=== PATIENT | male | born 1985 | race Caucasian/White ===

== ENCOUNTER 2024-06-18 17:11 | Emergency (ER) | payer OTHER ==
[2024-06-18 17:30] VITALS: RESP 18; TEMP 98.3
[2024-06-18 18:10] LABS: ALT 110 U/L (4-49); AST 51 U/L (17-59); African American GFR (CKD) >90 (>60 ml/min/1.73 sqM); Albumin 3.7 g/dL (3.5-5.0); Alkaline Phosphatase 98 U/L (38-126); Anion Gap 8 mmol/L; Blood Urea Nitrogen 23 mg/dL (9-20); Calcium 8.7 mg/dL (8.4-10.2); Carbon Dioxide 22 mmol/L (22-30); Chloride 105 mmol/L (98-107); Glucose 133 mg/dL (74-99); Magnesium 1.9 mg/dL (1.6-2.3); Non-African American GFR(CKD) >90 (>60 ml/min/1.73 sqM); Potassium 4.5 mmol/L (3.5-5.1); Sodium 135 mmol/L (137-145); Total Bilirubin 0.7 mg/dL (0.2-1.3); Total Protein 6.7 g/dL (6.3-8.2)
[2024-06-18 18:12] LABS: Basophils % (A) 0 %; Eosinophils # (A) 0.2 k/uL (0-0.7); Eosinophils % (A) 2 %; HCT 42.3 % (39.0-53.0); HGB 13.8 gm/dL (13.0-17.5); Hypochromasia Moderate; Lymphocytes % (A) 21 %; MCH 30.7 pg (25.0-35.0); MCHC 32.5 g/dL (31.0-37.0); MCV 94.5 fL (80.0-100.0); Mean Platelet Volume 10.6; Monocytes # (A) 0.5 k/uL (0-1.0); Monocytes % (A) 5 %; Neutrophils # (A) 6.7 k/uL (1.3-7.7); Neutrophils % (A) 70 %; Platelet Count 209 k/uL (150-450); RBC 4.48 m/uL (4.30-5.90); RDW 13.8 % (11.5-15.5); WBC 9.5 k/uL (3.8-10.6)
[2024-06-18 18:18] LABS: NT-Pro-B-Type Natriuretic Pept 15300 pg/mL
[2024-06-18 18:23] LABS: Partial Thromboplastin Time 24.6 sec (22.0-30.0); Prothrombin Time 11.4 sec (10.0-12.5)
--- NOTE | 2024-06-18 18:26 | ED ---
SOB HPI - General Chief Complaint: Shortness of Breath Stated Complaint: SOB Time Seen by Provider: 06/18/24 18:15 Source: patient, RN notes reviewed Mode of arrival: ambulatory Limitations: no limitations - History of Present Illness Initial Comments: This is a 39-year-old male who presents to the emergency department for shortness of breath and leg swelling. States that over the last couple of weeks he has had an increase in swelling in his bilateral lower extremities. Since this started he has also noticed an increase in shortness of breath. Denies any chest pain. States that his lungs feel like they are full of fluid. Denies any history of congestive heart failure or other medical problems. MD Complaint: shortness of breath - Related Data Previous Rx's Medication Instructions Recorded Furosemide [Lasix] 20 mg PO BID #6 tab 06/18/24 Allergies Allergy/AdvReac Type Severity Reaction Status Date / Time No Known Allergies Allergy Verified 06/18/24 17:29 Review of Systems ROS Statement: Those systems with pertinent positive or pertinent negative responses have been documented in the HPI. ROS Other: All systems not noted in ROS Statement are negative. Past Medical History Past Medical History: No Reported History History of Any Multi-Drug Resistant Organisms: None Reported Past Surgical History: No Surgical Hx Reported Past Psychological History: Anxiety, Depression Smoking Status: Current every day smoker Past Alcohol Use History: Occasional Past Drug Use History: Cocaine, Marijuana General Exam Limitations: no limitations General appearance: alert Head exam: Present: atraumatic, normocephalic, normal inspection Respiratory exam: Present: decreased breath sounds, prolonged expiratory Cardiovascular Exam: Present: normal rhythm, tachycardia Extremities exam: Present: other (Pitting edema to the bilateral lower extremities) Neurological exam: Present: alert, oriented X3, CN II-XII intact Psychiatric exam: Present: normal affect, normal mood Skin exam: Present: warm, dry Course Vital Signs 06/18/24 06/18/24 06/18/24 17:25 19:20 20:29 Temperature 98.3 F Pulse Rate 120 H 122 H 120 H Respiratory 18 18 18 Rate Blood Pressure 180/83 129/108 137/74 O2 Sat by Pulse 100 96 98 Oximetry Medical Decision Making - Medical Decision Making This is a 39-year-old male who presents to the emergency department for shortness of breath and leg swelling. Was pt. sent in by a medical professional or institution? @ -No Did you speak to anyone other than the patient for history? @ -No Did you review nursing and triage notes? @ -Yes, and I agree, it is accurate with regards to the patient's symptoms. Were old charts reviewed? @ -No Differential Diagnosis? @ -Differential Dyspnea: Coronary syndrome, arrhythmia, tamponade, asthma, COPD, pulmonary embolism, pneu monia, pneumothorax, pulmonary effusion, anaphylaxis, diabetic ketoacidosis, flailed chest, pulmonary contusion, diaphragmatic rupture, anemia, neuromuscular, this is not meant to be an all-inclusive list. EKG interpreted by me (3pts min.)? @ -EKG interpreted by me demonstrating the following: Sinus tachycardia. Ventricular rate 120 bpm, RI interval 155 ms, QRS duration 94 ms, QTc 410 ms. X-rays interpreted by me (1pt min.)? @ -Chest x-ray obtained, my interpretation identifies no localized consolidations or infiltrates. CT interpreted by me (1pt min.)? @ -CTA of the chest obtained. My interpretation identifies no evidence of a pulmonary embolus. U/S interpreted by me (1pt. min.)? @ -Not obtained What testing was considered but not performed? (CT, X-rays, U/S, labs)? Why? @ -Cepheid 4 Plex testing, however patient refused. What meds were considered but not given? Why? @ -None Did you discuss the management of the patient with other professionals? @ -No Did you reconcile home meds? @ -No Was smoking cessation discussed for >3mins.? @ -No Was critical care preformed (if so, how long)? @ -No Were there social determinants of health that impacted care today? How? (Homelessness, low income, unemployed, alcoholism, drug addiction, transportation, low edu. Level, literacy, decrease access to med. care, residential, r ehab)? @ -No Was there de-escalation of care discussed even if they declined? (Discuss DNR or withdrawal of care, Hospice)? @ -No What co-morbidities impacted this encounter? (DM, HTN, Smoking, COPD, CAD, Cancer, CVA, Hep., AIDS, mental health diagnosis, sleep apnea, morbid obesity)? @ -None Was patient admitted / discharged? @ -Lab work demonstrates an elevated D-dimer of 1.19 and an elevated BNP of 15,300. I advised Cepheid 4 Plex testing, however patient refused. Chest x-ray reveals no acute process. CTA of the chest reveals no evidence of a pulmonary embolus. He does have cardiomegaly as well as a dilated pulmonary artery suggestive of pulmonary artery hypertension. Patient's presentation potentially related to a new onset CHF versus pulmonary hypertension. I did advise admission for diuresis and an echocardiogram with cardiology evaluation. However, patient refused despite my strongest recommendations as he had no one to take care of his dogs. Patient subsequently signed out AGAINST MEDICAL ADVICE. 40 mg of IV Lasix administered in the emergency department and a prescription for 20 mg twice daily x 3 days was provided. Information for cardiology follow-up provided as well. Advised he contact their facility for a follow-up appointment or become established with a local primary care provider for ongoing medical care. Case discussed with ED attending Dr. Parra. Undiagnosed new problem with uncertain prognosis? @ -None Drug Therapy requiring intensive monitoring for toxicity (Heparin, Nitro, Insulin, Cardizem)? @ -None Were any procedures done? @ -None Diagnosis/symptom? @ -Elevated BNP, dyspnea, lower extremity edema, tachycardia Acute, or Chronic, or Acute on Chronic? @ -Acute Uncomplicated (without systemic symptoms) or Complicated (systemic symptoms)? @ -Complicated Side effects of treatment? @ -None Exacerbation, Progression, or Severe Exacerbation] @ -Not applicable Poses a threat to life or bodily function? @ -Yes, can lead to further cardiac and respiratory compromise - Lab Data Result diagrams: 06/18/24 17:43 06/18/24 17:43 Lab Results 06/18/24 06/18/24 06/18/24 Range/Units 17:43 17:43 17:43 WBC 9.5 (3.8-10.6) k/uL RBC 4.48 (4.30-5.90) m/uL Hgb 13.8 (13.0-17.5) gm/dL Hct 42.3 (39.0-53.0) % MCV 94.5 (80.0-100.0) fL MCH 30.7 (25.0-35.0) pg MCHC 32.5 (31.0-37.0) g/dL RDW 13.8 (11.5-15.5) % Plt Count 209 (150-450) k/uL MPV 10.6 Neutrophils % 70 % Lymphocytes % 21 % Monocytes % 5 % Eosinophils % 2 % Basophils % 0 % Neutrophils # 6.7 (1.3-7.7) k/uL Lymphocytes # 2.0 (1.0-4.8) k/uL Monocytes # 0.5 (0-1.0) k/uL Eosinophils # 0.2 (0-0.7) k/uL Basophils # 0.0 (0-0.2) k/uL Hypochromasia Moderate PT 11.4 (10.0-12.5) sec INR 1.0 (<1.2) APTT 24.6 (22.0-30.0) sec D-Dimer 1.19 H (<0.60) mg/L FEU Sodium 135 L (137-145) mmol/L Potassium 4.5 (3.5-5.1) mmol/L Chloride 105 (98-107) mmol/L Carbon Dioxide 22 (22-30) mmol/L Anion Gap 8 mmol/L BUN 23 H (9-20) mg/dL Creatinine 1.00 (0.66-1.25) mg/dL Est GFR (CKD-EPI)AfAm >90 (>60 ml/min/1.73 sqM) Est GFR (CKD-EPI)NonAf >90 (>60 ml/min/1.73 sqM) Glucose 133 H (74-99) mg/dL Calcium 8.7 (8.4-10.2) mg/dL Magnesium 1.9 (1.6-2.3) mg/dL Total Bilirubin 0.7 (0.2-1.3) mg/dL AST 51 (17-59) U/L ALT 110 H (4-49) U/L Alkaline Phosphatase 98 (38-126) U/L Troponin I (0.000-0.034) ng/mL NT-Pro-B Natriuret Pep 51774 pg/mL Total Protein 6.7 (6.3-8.2) g/dL Albumin 3.7 (3.5-5.0) g/dL 06/18/24 Range/Units 17:43 WBC (3.8-10.6) k/uL RBC (4.30-5.90) m/uL Hgb (13.0-17.5) gm/dL Hct (39.0-53.0) % MCV (80.0-100.0) fL MCH (25.0-35.0) pg MCHC (31.0-37.0) g/dL RDW (11.5-15.5) % Plt Count (150-450) k/uL MPV Neutrophils % % Lymphocytes % % Monocytes % % Eosinophils % % Basophils % % Neutrophils # (1.3-7.7) k/uL Lymphocytes # (1.0-4.8) k/uL Monocytes # (0-1.0) k/uL Eosinophils # (0-0.7) k/uL Basophils # (0-0.2) k/uL Hypochromasia PT (10.0-12.5) sec INR (<1.2) APTT (22.0-30.0) sec D-Dimer (<0.60) mg/L FEU Sodium (137-145) mmol/L Potassium (3.5-5.1) mmol/L Chloride (98-107) mmol/L Carbon Dioxide (22-30) mmol/L Anion Gap mmol/L BUN (9-20) mg/dL Creatinine (0.66-1.25) mg/dL Est GFR (CKD-EPI)AfAm (>60 ml/min/1.73 sqM) Est GFR (CKD-EPI)NonAf (>60 ml/min/1.73 sqM) Glucose (74-99) mg/dL Calcium (8.4-10.2) mg/dL Magnesium (1.6-2.3) mg/dL Total Bilirubin (0.2-1.3) mg/dL AST (17-59) U/L ALT (4-49) U/L Alkaline Phosphatase (38-126) U/L Troponin I 0.017 (0.000-0.034) ng/mL NT-Pro-B Natriuret Pep pg/mL Total Protein (6.3-8.2) g/dL Albumin (3.5-5.0) g/dL - Radiology Data Radiology results: report reviewed, image reviewed Disposition Clinical Impression: Leg swelling, Dyspnea, Tachycardia, Elevated brain natriuretic peptide (BNP) level Disposition: LEFT AGAINST MEDICAL ADVICE Instructions (If sedation given, give patient instructions): Heart Failure (ER), Heart Failure (DC), Pulmonary Arterial Hypertension (ED), Leg Edema (ED) Additional Instructions: Return to the emergency department with any new, worsening, or concerning symptoms. Take the Lasix twice daily for the next 3 days. Elevate your legs and use compression stockings if possible. Review the list of local primary care providers to become established for ongoing medical management. Also reach out to the cardiology office listed below for a follow up appointment. Let them know that you were seen in the emergency department and they were concerned about congestive heart failure. Prescriptions: Furosemide [Lasix] 20 mg PO BID #6 tab Is patient prescribed a controlled substance at d/c from ED?: No Referrals: None,Stated [Primary Care Provider] - 1-2 days Martin Bates MD [STAFF PHYSICIAN] - 1-2 days Forms: Area PCPs Time of Disposition: 20:09
--- NOTE | 2024-06-18 18:44 | XR ---
EXAMINATION TYPE: XR chest 2V DATE OF EXAM: 06/18/2024 6:39 PM COMPARISON: None TECHNIQUE: XR chest 2V Frontal and lateral views of the chest. CLINICAL INDICATION:Male, 39 years old with history of difficulty breathing; FINDINGS: Lungs/Pleura: There is no evidence of pleural effusion, focal consolidation, or pneumothorax. Pulmonary vascularity: Unremarkable. Heart/mediastinum: Cardiomediastinal silhouette is prominent in size. Musculoskeletal: No acute osseous pathology. Mild multilevel degenerative disc disease. IMPRESSION: No acute cardiopulmonary disease/process. [facility], , 06/18/2024 6:42 PM
--- NOTE | 2024-06-18 19:01 | CT ---
EXAMINATION TYPE: CT chest angio for PE CT DLP: 388.7 mGycm, Automated exposure control for dose reduction was used. DATE OF EXAM: 06/18/2024 6:49 PM COMPARISON: Chest radiograph from same day. CLINICAL INDICATION:Male, 39 years old with history of BREA, elevated d-dimer, tachy; BREA, elevated d- dimer, tachy. TECHNIQUE/CONTRAST: CTA scan of the thorax is performed with IV Contrast, patient injected with 100 mL of Isovue 370, pul monary embolism protocol. MIP images are created and reviewed. FINDINGS: Pulmonary Artery: There is no evidence for a filling defect within the pulmonary vasculature to sugge st acute pulmonary embolism. The pulmonary artery is dilated measuring up to 3.6 cm. Lungs/Pleura: No evidence of focal consolidation, pleural effusion or pneumothorax. Linear atelectasi s within the left lower lobe. No suspicious pulmonary nodule or mass. Airway: Large airways are patent. Heart: Cardiomegaly is demonstrated.No pericardial effusion. No significant coronary artery calcifica tions. Vasculature: No evidence of aortic aneurysm. Mediastinum: No evidence of adenopathy. Musculoskeletal: No acute osseous abnormalities. Mild degenerative disc disease of the midthoracic sp ine. Soft Tissues: Unremarkable. Lower neck: No significant findings. Upper Abdomen: No significant findings. IMPRESSION: 1. No evidence of pulmonary embolism. 2. Dilated pulmonary artery which can be seen with pulmonary arterial hypertension. 3. Cardiomegaly. [facility], , 06/18/2024 6:59 PM
[2024-06-18] MEDS: FUROSEMIDE 10 MG/ML 4 ML VIAL IV STA (19:19)
[2024-06-18 20:32] VITALS: BP 137/74; PULSE 120
== END 2024-06-18 20:29 | disposition left against medical advice (07) ==
LOC: EC 17:11
DX: R06.00 Dyspnea, unspecified (principal); R00.0 Tachycardia, unspecified; R22.43 Localized swelling, mass and lump, lower limb, bilateral; I50.9 Heart failure, unspecified; F17.200 Nicotine dependence, unspecified, uncomplicated; Z53.29 Procedure and treatment not carried out because of patient's decision for other reasons
CPT/HCPCS: 96374 ×2; 99285 ×2; 36415; 93005; 85379; 83880; 80053; 83735; 84484; 85025; 85610; 85730; 71046; 71275; J1940; Q9967

== ENCOUNTER → 2024-07-26 | Outpatient (CLI) | payer SELFPAY ==
[2024-07-26 18:51] LABS: BUN/Creat Ratio 22.82 Ratio (12.00-20.00); Blood Urea Nitrogen 25.1 mg/dL (9.0-27.0); Carbon Dioxide 25.5 mmol/L (21.6-31.8); Chloride 99 mmol/L (96-109); Chol/HDL Ratio 3.12 Ratio; Glucose 106 mg/dL (70-110); LDL Cholesterol,Calculated 75.7 mg/dL (0.0-131.0); Potassium 3.7 mmol/L (3.5-5.5); Sodium 139 mmol/L (135-145); VLDL Calculation 16.14 mg/dL (5.00-40.00)
[2024-07-26 18:52] LABS: ALT 40 U/L (10-49); AST 39 U/L (14-35); Calcium 8.9 mg/dL (8.7-10.3)
[2024-07-26 21:57] LABS: NT-Pro-B-Type Natriuretic Pept 14253 pg/mL (0-125)
== END | disposition home or self-care (01) ==
LOC: LABWHC1 15:20
PROVIDERS: ATTEND Internal Medicine Gastroenterology
DX: E78.2 Mixed hyperlipidemia (principal)
CPT/HCPCS: 36415; 80048; 80061; 83880; 84450; 84460

== ENCOUNTER 2024-08-04 10:13 | Day surgery (SDC) | payer BC ==
[~2024-08-04 10:13] MED LIST: ALPRAZolam 0.25 MG TAB PO PRN; ALPRAZolam 0.5 MG TAB PO PRN; ASPIRIN 325 MG TAB PO ONE; HEPARIN SODIUM,PORCINE (1 ML) 2,500 UNIT in SODIUM CHLORIDE 0.9% 250 ML IRRIGATION PRN; HEPARIN SODIUM,PORCINE 10,000 UNIT in SODIUM CHLORIDE 0.9% 1,000 ML IRRIGATION PRN; NITROGLYCERIN SL TABS 0.4 MG TAB SUBLINGUAL PRN; SODIUM CHLORIDE 0.9% 1,000 ML in EMPTY BAG 1 BAG IV SCH
[2024-08-04 10:29] VITALS: RESP 18; TEMP 96.9
[2024-08-04] MEDS: IV FLUID CONTINUATION 1,000 ML IV ONE (10:29)
[2024-08-04] MEDS: ASPIRIN 325 MG TAB PO ONE (11:27)
[2024-08-04] MEDS: HEPARIN SODIUM,PORCINE (1 ML) 2,500 UNIT in SODIUM CHLORIDE 0.9% 250 ML IRRIGATION ONE (12:01)
[2024-08-04] MEDS: HEPARIN SODIUM (1,000 UNIT/ML) 1,000 UNIT in SODIUM CHLORIDE 0.9% 1,000 ML IRRIGATION ONE (12:01)
[2024-08-04] MEDS: MIDAZOLAM 2 MG/2 ML VIAL IVP ONE (12:08)
[2024-08-04] MEDS: fentaNYL (PF) 50 MCG/ML 2 ML AMP IVP ONE (12:08)
[2024-08-04] MEDS: LIDOCAINE 1% INJ 10MG/ML (20 ML MDV) SQ ONE (12:09)
[2024-08-04] MEDS: VERAPAMIL SYRINGE (5 MG/10 ML) INTRAARTER ONE (12:12)
[2024-08-04] MEDS: HEPARIN SODIUM 1,000 UN/ML (10ML VL) IVP ONE (12:14)
[2024-08-04] MEDS: IOPAMIDOL-370 100ML BTL INJ ONE (12:20)
[2024-08-04] MEDS ORDERED: RX INFO: IV CONTRAST WAS GIVEN 1 EACH MISC MISCELLANE PRN (12:27)
[2024-08-04] MEDS ORDERED: SODIUM CHLORIDE 0.9% 1,000 ML IV SCH (12:30)
[2024-08-04 14:16] VITALS: BP 106/79; PULSE 101
--- NOTE | 2024-08-04 22:43 | CC ---
CARDIAC CATHETERIZATION REPORT INDICATION: Cardiomyopathy with LV systolic dysfunction and new onset congestive heart failure, new onset systolic heart failure. PROCEDURE NOTE: After obtaining informed consent, left heart catheterization and coronary angiogram were performed via the right radial artery using standard Taya catheters. The patient tolerated the procedure well without any obvious immediate complications. Total sedation time was 10 minutes. Right radial artery access was obtained using Seldinger technique. [place] sheath was placed. Catheters and wires were floated into the ascending aorta under fluoroscopic guidance. The patient received verapamil and heparin per protocol and a TR band will be used for hemostasis. FINDINGS: 1. Hemodynamics: Left ventricular end-diastolic pressure is 10 mm. There is no significant gradient across the aortic valve. 2. Left ventriculogram: Not performed. 3. Angiographic data: a.Right coronary artery: Large dominant vessel and is free of significant stenosis. Left main coronary artery is a normal-sized vessel and is free of disease. Divides into left anterior descending coronary artery and circumflex coronary artery. b.LAD and its branches, circumflex coronary artery and its branches are free of significant stenosis. CONCLUSIONS: 1. No significant obstructive CAD. 2. Nonischemic cardiomyopathy with severe LV systolic dysfunction. PLAN: I will continue with the guideline-driven medical therapy and refer him to Heart Failure [facility] at [facility]. He currently has a LifeVest on and will repeat an echocardiogram in [address] and if he continues to have LV systolic dysfunction in spite of optimal therapy, he will undergo AICD. MMDAVI / LYNNEN: [id number] /
== END 2024-08-04 15:21 | disposition home or self-care (01) ==
LOC: CATHCVL 10:13
PROVIDERS: ATTEND Internal Medicine Cardiovascular Disease
DX: I42.0 Dilated cardiomyopathy (principal); I50.22 Chronic systolic (congestive) heart failure; Z72.0 Tobacco use; Z95.810 Presence of automatic (implantable) cardiac defibrillator; Z79.899 Other long term (current) drug therapy
CPT/HCPCS: 93458; 99152; C1894; J2250; J1644 ×2; J2003; J3010; Q9967